=== PATIENT | female | born 1985 | race Two or more races ===

== ENCOUNTER 2018-11-18 06:54 | Day surgery (SDC) | payer BC ==
[~2018-11-18] VITALS: Ht 171.4 cm; Wt 76.2 kg
[2018-11-18] VITALS (10 sets, daily range): BP systolic 100–120; BP diastolic 57–81
--- NOTE | 2018-11-18 08:13 | Pre-Procedure Note/Attestation ---
Pre-Procedure Note/Attestation Complete Prior to Procedure Planned Procedure: left Procedure Narrative: knee arthroscopy, possible medial and lateral mensectomy Indications for Procedure Pre-Operative Diagnosis: left knee medial and lateral mensectomy Attestation I attest that I discussed the nature of the procedure; its benefits; risks and complications; and alternatives (and the risks and benefits of such alternatives ), prior to the procedure, with the patient (or the patient's legal home furnishings sales representative). I attest that, if there was a reasonable possibility of needing a blood transfusion, the patient (or the patient's legal home furnishings sales representative) was given the [facility] standardized written summary, pursuant to the [place] Blood Safety Act ([place] Health and Safety Code # 1645, as amended). I attest that I re-evaluated the patient just prior to the surgery and that there has been no change in the patient's H&P, except as documented below: Dann Magana MD Nov 18, 2018 08:13
--- NOTE | 2018-11-18 08:14 | Operative Note - PDOC ---
Operative Note Operative Note Pre-op Diagnosis: left knee medial and lateral mensectomy Procedure: see op report Post-op Diagnosis: same as pre-op plus Operative Findings: consistent w/pre-op dx studies Anesthesia: regional Specimen: none Complications: none Condition: stable Estimated Blood Loss: none Implant(s) used?: No Dann Magana MD Nov 18, 2018 08:14
[2018-11-18] MEDS ORDERED: Norco 5mg/325mg tab ORAL PRN (08:15)
[2018-11-18] MEDS ORDERED: HYDROmorphone 1mg/ml Carpuject SUBQ PRN (08:15)
[2018-11-18] MEDS ORDERED: D5 1/2NS 1,000 ML IV SCH (08:15)
[2018-11-18] MEDS ORDERED: oxyCONTIN 20mg tab ORAL ONE (08:15)
[2018-11-18] MEDS ORDERED: Tylenol #3 tab (300mg/30mg) ORAL PRN (08:15)
[2018-11-18] MEDS ORDERED: celeBREX 200mg Cap **SURGERY PATIENTS ONLY ORAL ONE (08:30)
[2018-11-18] MEDS ORDERED: NKM (08:38)
[2018-11-18] MEDS ORDERED: LR 1000ml 1,000 ML IVLG SCH (09:17)
--- NOTE | 2018-11-18 09:17 | Anethesia Preoperative Eval ---
Anesthesia Pre-op PMH/ROS General Date of Evaluation: Nov 18, 2018 Anesthesiologist: Evan ASA Score: ASA 1 Mallampati Score Class I : Soft palate, uvula, fauces, pillars visible Class II: Soft palate, uvula, fauces visible Class III: Soft palate, base of uvula visible Class IV: Only hard plate visible Mallampati Classification: Class II Surgeon: Chino Diagnosis: Left knee internal derangement Surgical Procedure: Left knee arthroscopy with lateral and medial meniscectomy Anesthesia History: none Family History: no anesthesia problems Allergies: Coded Allergies: No Known Allergies (Unverified , 11/18/18) Medications: see eMAR Patient NPO?: Yes NPO Date: Nov 17, 2018 NPO Time: 22:00 Past Medical History Cardiovascular: Denies: HTN, CAD, [place], valve dz, arrhythmia, other Pulmonary: Denies: asthma, COPD, DANDRE, other Gastrointestinal/Genitourinary: Denies: GERD, CRI, ESRD, other Neurologic/Psychiatric: Denies: dementia, CVA, depression/anxiety, TIA, other Endocrine: Denies: DM, hypothyroidism, steroids, other HEENT: Denies: cataract (L), cataract (R), glaucoma, [place] (L), [place] (R), other Hematology/Immune: Denies: anemia, DVT, bleeding disorder, other Musculoskeletal/Integumentary: Denies: OA, RA, DJD, DDD, edema, other PSxH Narrative: Denies Anesthesia Pre-op Phys. Exam Physician Exam Last Vital Signs Date Time Temp Pulse Resp B/P (MAP) Pulse Ox O2 Delivery O2 Flow Rate FiO2 11/18/18 08:29 Room Air 11/18/18 08:18 98.0 66 18 113/76 99 Constitutional: NAD Cardiovascular: RRR Respiratory: CTA Airway Exam Mallampati Score: Class II MO: full ROM: full Teeth: intact Anesthesia Pre-op A/P Labs see chart Urine Test Test 11/18/18 07:06 Urine HCG, Qualitative Negative (NEGATIVE) Risk Assessment & Plan Assessment: ASA I Plan: GA Status Change Before Surgery: No Pre-Antibiotics Drug: Ancef 1g Given Within 1 Hr of Incision: Yes Sanjuanita Ramirez MD Nov 18, 2018 09:17
[2018-11-18] MEDS ORDERED: Ketorolac 30mg Inj IV PRN (09:30)
[2018-11-18] MEDS ORDERED: Hydromorphone 0.5mg/0.5ml inj IVP PRN (09:30)
[2018-11-18] MEDS ORDERED: fentaNYL 100 mcg/2 mL IV PRN (09:30)
[2018-11-18] MEDS ORDERED: Midazolam 2mg/2ml Inj IVP PRN (09:30)
[2018-11-18] MEDS ORDERED: DiphenhydrAMINE 50mg/ml Inj IVP PRN (09:30)
[2018-11-18] MEDS ORDERED: LORazepam Inj 2mg/ml 1ml IV PRN (09:30)
[2018-11-18] MEDS ORDERED: NS Irrig 4000ml IRRIG ONE (10:00)
[2018-11-18] MEDS ORDERED: LR 1000ml ONE (10:00)
[2018-11-18] MEDS ORDERED: Morphine Sulfate PF 10 ML ONE (10:10)
[2018-11-18] MEDS ORDERED: EPINEPHrine 1mg/1ml Amp ONE ×2 (10:10→10:12)
[2018-11-18] MEDS ORDERED: Kenalog-40 1ml Vial ONE (10:10)
[2018-11-18] MEDS ORDERED: Lidocaine 1% 10mg/ml/Epi 0.005mg/ml 30ml vial INJ ONE (10:11)
[2018-11-18] MEDS ORDERED: Bupivacaine w/Epi 0.5% 30ml Vial INJ ONE (10:11)
[2018-11-18] MEDS ORDERED: Bupivacaine 0.5% 10ml INJ ONE (10:12)
[2018-11-18] MEDS ORDERED: Propofol 200mg/20ml IV ONE (10:17)
[2018-11-18] MEDS ORDERED: Lidocaine 1% MPF 10mg/ml 5ml ONE (10:17)
[2018-11-18] MEDS ORDERED: Metoclopramide 10mg/2ml Inj ONE (10:25)
[2018-11-18] MEDS ORDERED: Dexamethasone 4mg/ml vial ONE (10:25)
--- NOTE | 2018-11-18 11:05 | Immediate Post-Op Evaluation ---
Immediate Post-Op Evalulation Immediate Post-Op Evalulation Procedure: left knee arthroscopy, medial and lateral meniscectomy Date of Evaluation: Nov 18, 2018 Time of Evaluation: 11:07 IV Fluids: 800 Blood Products: 0 Estimated Blood Loss: min Urinary Output: 0 Blood Pressure Systolic: 100 Blood Pressure Diastolic: 57 Pulse Rate: 74 Respiratory Rate: 16 O2 Sat by Pulse Oximetry: 99 Temperature (Fahrenheit): 97.8 Pain Score (1-10): 0 Nausea: No Vomiting: No Complications 0 Patient Status: awake, reacts, patent, none Hydration Status: adequate Drug: Ancef 1g Given Within 1 Hr of Incision: Yes Time Given: 10:20 Sanjuanita Ramirez MD Nov 18, 2018 11:05
--- NOTE | 2018-11-18 11:05 | 48 Hour Post Anesthesia Eval ---
Post Anesthesia Evaluation Procedure: left knee arthroscopy, medial and lateral meniscectomy Date of Evaluation: Nov 18, 2018 Airway: patent Nausea: No Vomiting: No Pain Intensity: 0 Hydration Status: adequate Cardiopulmonary Status: at baseline Mental Status/LOC: patient returned to baseline Post-Anesthesia Complications: 0 Follow-up care needed: ready to discharge Sanjuanita Ramirez MD Nov 18, 2018 11:05
--- NOTE | 2018-11-18 19:30 | Operative Note - Dictated ---
DATE OF OPERATION: 11/18/2018 PREOPERATIVE DIAGNOSIS: Left knee medial and lateral meniscus tear. POSTOPERATIVE DIAGNOSES: 1. Posterior horn lateral meniscus tear. 2. ACL sprain with secondary cyclops lesion. 3. Hypertrophic synovial tissue/fat pad. 4. Medial plica. PROCEDURE: 1. Left knee diagnostic arthroscopy. 2. Left knee partial and lateral meniscectomy. 3. Synovectomy, medial and lateral patellofemoral compartment. SURGEON: Dann Magana M.D. ANESTHESIA: General. INDICATION FOR PROCEDURE: The patient is a pleasant 33-year-old female who sustained injury to her left knee. She has significant difficulty with extension and weightbearing. She had an MRI, which showed possible tear of the medial and lateral meniscus. She failed conservative treatment, had significant pain and difficulty with full extension as well. At this point, 01:05 meniscus and therefore it was felt that operative fixation and it was reasonable. Risks, limitations, expectations, complication of the procedure were discussed in detail. All questions addressed. DESCRIPTION OF PROCEDURE: After informed consent was obtained, the patient was brought to the operating room and placed under general anesthesia. Tourniquet was applied to the left proximal thigh. Left leg was prepped and draped in a sterile manner. Time-out was performed. Inferolateral stab incision was then made. Trocar introduced into patellofemoral compartment. There was significant hematoma in the knee. There was some medial plica rubbing against the medial femoral condyle. Medial compartment was entered. Medial working portal was established and the synovectomy and excision of the anterior portion of medial component was performed and visualized medial compartment. At this point, the posterior horn of the medial meniscus which was concern for possible meniscus was evaluated and noted to be intact. There was no chondral damage. Intercondylar notch was entered. There was significant erythema along the ACL consistent with a possible intrasubstance tear. There appeared to be a cyclops lesion along the tibial spine notch. Excision of ligamentum mucosum and the fat pad was performed. Once that was done, there was no impingement of ACL in flexion and extension. Lateral compartment was entered. There is small tear in the posterior horn medial meniscus and the lateral meniscus. Partial lateral meniscectomy of posterior horn was performed. Once that was done, the remaining aspect of the meniscus was probed to make sure there was no further tearing. The camera was then placed in the patellofemoral compartment. Synovectomy was completed. Once that was done, the instruments were removed. Portal sites were closed with 3-0 Monocryl sutures. Steri-Strips and a sterile dressing were applied. ESTIMATED BLOOD LOSS: None. COMPLICATIONS: None. SPECIMENS: None. IMPLANTS: None. Dann Magana M.D. DR: Daisy JOB#: [id number] CC:
== END 2018-11-18 13:50 | disposition home or self-care (01) ==
LOC: SUR 06:54
DX: M23.252 Derangement of posterior horn of lateral meniscus due to old tear or injury, left knee (principal); S83.512A Sprain of anterior cruciate ligament of left knee, initial encounter; M67.262 Synovial hypertrophy, not elsewhere classified, left lower leg; M79.4 Hypertrophy of (infrapatellar) fat pad; F17.210 Nicotine dependence, cigarettes, uncomplicated
CPT/HCPCS: 29881; 81025; J0171; J0690; J1100; J1885; J2250; J2274; J2405; J2704; J2765; J3010; J3301; J3490; 94003; 94150